=== PATIENT | female | born 1985 | race Caucasian/White ===

== ENCOUNTER 2020-07-11 23:07 | Emergency (ER) | payer SELFPAY ==
[~2020-07-11] VITALS: Ht 157.5 cm; Wt 52.3 kg
[2020-07-11 23:13] VITALS: BP 142/79
== END 2020-07-12 01:26 | disposition left against medical advice (07) ==
LOC: ER 23:07
DX: R05 Cough (principal); R09.89 Other specified symptoms and signs involving the circulatory and respiratory systems; Z53.21 Procedure and treatment not carried out due to patient leaving prior to being seen by health care provider